=== PATIENT | male | born 1980 | race Caucasian/White ===

== ENCOUNTER 2025-02-10 05:17 | Emergency (ER) | payer BC, OTHER ==
[~2025-02-10] VITALS: Ht 185.4 cm; Wt 165.9 kg
[2025-02-10] MEDS: KETOROLAC TROMETH 60MG/2ML VIAL IM ONE (06:21)
[2025-02-10 06:22] VITALS: BP 140/85; PULSE 63; RESP 18; TEMP 98.1; O2SAT 94
--- NOTE | 2025-02-10 06:27 | DVH ---
EXAM: XR Left Foot Complete, 3 or More Views CLINICAL INDICATION: LEFT FOOT PAIN TECHNIQUE: Frontal, lateral and oblique views of the left foot. COMPARISON: None FINDINGS: BONES/JOINTS: See below. SOFT TISSUES: Soft tissue swelling without acute fracture. No radiopaque foreign body. OTHER FINDINGS: . IMPRESSION: 1. Soft tissue swelling without acute fracture. 2. If symptoms persist, further evaluation with CT is recommended.
--- NOTE | 2025-02-10 07:48 | ED.PDOC ---
Musculoskeletal HPI Comments 44 year male presents for atraumatic non radiating pain to the left foot located to the dorsal lateral aspect of the foot predominantly the base of the 5th metatarsal. The pain is rated moderate in his aggravated with prolonged standing and alleviated at rest. Able to get temporary relief with [id number] Tylenol and Motrin. Denies previous injuries to the affected extremity. Denies any swelling, warmth, erythema. Denies fevers chills nausea vomiting diarrhea Chief Complaint: Lower Extremity Time Seen by MD: 06:34 Reviewed Notes: Nurses Notes, Medications, Allergies Allergies: Coded Allergies: NO KNOWN ALLERGIES (Unverified , 02/10/25) Information Source: Patient Mode of Arrival: Ambulatory Past Medical History PAST MEDICAL HISTORY: Denies Surgical History: Denies all surgeries Family History Family History: Reviewed,noncontributory to illness Social History Smoker: Non-Smoker Alcohol: Denies ETOH Use Drugs: Denies Drug Use All Other Systems: Reviewed and Negative (per hpi) Physical Exam General Appearance: No Apparent Distress, Normal HEENT: Normal ENT Inspection, Pharynx Normal, TMs Normal Neck: Full Range of Motion, Non-Tender, Normal, Normal Inspection Respiratory: Chest Non-Tender, Lungs Clear, No Accessory Muscle Use, No Respiratory Distress, Normal Breath Sounds Cardiovascular: No Edema, No JVD, No Murmur, No Gallop, Normal Peripheral Pulses, Regular Rate/Rhythm Breast Exam: Deferred Gastrointestinal: No Organomegaly, Non Tender, No Pulsatile Mass, Normal Bowel Sounds, Soft Genitalia: Deferred Pelvic: Deferred Rectal: Deferred Extremities: No calf tenderness, Normal capillary refill, Normal inspection, Normal range of motion, Non-tender, No pedal edema Musculoskeletal : Apperance: Normal Neurologic: Alert, [place] II-XII nml as Tested, No Motor Deficits, Normal Affect, Normal Mood, No Sensory Deficits Cerebellar Function: Normal Reflexes: Normal Skin: Dry, Normal Color, Warm Lymphatic: No Adenopathy Was a procedure done? Was a procedure done?: No Images 1 - Localized tenderness to palpation. No other gross abnormality. Dorsalis pedal pulses 2+. No pain with plantar flexion, dorsiflexion. Inversion eversion intact Differential Diagnosis EXT Differential Diagnosis: Sprain X-Ray, Labs, Meds, VS Vital Signs Date Time Temp Pulse Resp B/P (MAP) Pulse Ox O2 Delivery O2 Flow Rate FiO2 02/10/25 06:22 63 18 94 Room Air* 0 21 02/10/25 06:22 98.1 63 18 140/85 (103) 94 98.1 02/10/25 05:25 98.1 63 18 140/85 (103) 94 98.1 Current Medications Medications (Trade) Dose Ordered Sig/Vivi Route Start Time Stop Time Status Last Admin Ketorolac Tromethamine (Toradol Injection) 30 mg ONCE ONCE IM 02/10/25 06:00 02/10/25 06:01 DC 02/10/25 06:21 PATIENT: RUBI ADAMCCT: [id number]: [id number] : 1980 LOC: ER ROOM / BED: / AGE / SEX: 44 / M ADM STATUS: REG ER SERVICE 4 ORDERING PHYSICIAN: SAÚL GONZÁLES MD PROCEDURE(s): LFOOT - L FOOT 3 VIEW XRAY REASON: LEFT FOOT PAIN ORDER NUMBER(s): [id number], ACCESSION NUMBER(s): [id number] EXAM: XR Left Foot Complete, 3 or More Views CLINICAL INDICATION: LEFT FOOT PAIN TECHNIQUE: Frontal, lateral and oblique views of the left foot. COMPARISON: None FINDINGS: BONES/JOINTS: See below. SOFT TISSUES: Soft tissue swelling without acute fracture. No radiopaque foreign body. OTHER FINDINGS: . IMPRESSION: 1. Soft tissue swelling without acute fracture. 2. If symptoms persist, further evaluation with CT is recommended. ATED BY: SUHAS HERRERA MD DICTATED DATE/TIME: 02/10/25624 SIGNED BY: SUHAS HERRERA MD SIGNED DATE/TIME: 02/10/25624 CC: X-Ray, Labs, Meds, VS Comment History and examination consistent of muscular injury vs tendinitis. X-rays ordered, read by radiologist and reviewed by me Patient was given Toradol x1 with no adverse reactions. Declined crutches Take IBU 600 w/ food as needed for pain Recommended heat therapy Reviewed RICE management Avoid heavy lifting or strenuous activity Recommended range of motion exercises and limit heavy activity for 1 week If no improvement advised patient to return to the emergency department for follow-up. On reevaluation, patient had symptomatic improvement. Patient is stable for discharge at this time. External notes reviewed. Test results and diagnostic imaging interpreted. All diagnostic findings, discharge care, education and instructions provided Follow-up with PCP in 2 to 3 days Patient verbalized understanding and agreed to treatment plan Vital signs stable, afebrile, no acute distress noted Patient ambulatory with strong steady gait Advised to return precautions for any new or worsening symptoms, return to ER immediately for re-evaluation Patient is aware that the purpose of this visit was for an acute medical emergency requiring emergent stabilization. Chronic conditions, including malignancies have not been ruled out. Patient is instructed to follow up with PCP as directed and discharge instructions for continued care and workup. If unable to arrange follow-up, patient is to return to the emergency department for reassessment. Patient (parent or legal guardian if applicable) was given verbal and written discharge instructions and acknowledges understanding. Time of 1ST Reevaluation: 07:46 Reevaluation 1ST: Improved Patient Education/Counseling: Diagnosis, Treatment Family Education/Counseling: Diagnosis, Treatment Departure 1 Departure Time of Disposition: 07:47 Impression: Primary Impression: Left foot pain Disposition: 01 HOME / SELF CARE / HOMELESS Condition: Stable Discharged With: Self Critical Care Note Critical Care Time?: No Stability Stability form required: No Heart Score Heart Score: Heart Score Response (Comments) Value History N/A 0 EKG N/A 0 Age N/A 0 Risk Factors N/A 0 Troponin N/A 0 Total 0 RODOLFO YE NP Feb 10, 2025 07:48
== END 2025-02-10 07:49 | disposition home or self-care (01) ==
LOC: ER 05:17 → EEVIPCON 05:17 → ER 07:49
DX: M79.672 Pain in left foot (principal)
CPT/HCPCS: 73630; 96372; 99283; J1885

== ENCOUNTER 2025-10-08 08:51 | Emergency (ER) | payer BC, OTHER ==
[~2025-10-08] VITALS: Ht 185.4 cm; Wt 170.8 kg
[~2025-10-08 08:51] MED LIST: LISI10TA34 PO
[2025-10-08 09:20] VITALS: BP 144/83; TEMP 98.3
--- NOTE | 2025-10-08 09:41 | ED.PDOC ---
History of Present Illness(SKN HPI Comments A 45 YEAR OLD MALE PRESENTS TO THE ED WITH COMPLAINT OF REDNESS AND BILATERAL LOWER LEGS. PATIENT STATES HE HAS A HISTORY OF CELLULITIS OF HIS BILATERAL LOWER LEG AND HAS BEEN EXPERIENCING REDNESS, MILD SWELLING, AND A BURNING PAIN TO HIS BILATERAL LOWER LEGS FOR THE PAST 1 WEEK. PATIENT NOTES THIS HAS BEEN A RECURRENT PROBLEM FOR THE PAST 3 YEARS. PATIENT DENIES FEVER, CHILLS, SHORTNESS OF BREATH, CHEST PAIN, ABDOMINAL PAIN, NAUSEA, VOMITING, HEADACHE, OR OTHER COMPLAINTS. NO OTHER SYMPTOMS OR MODIFYING FACTORS AT THIS TIME. PATIENT IS ALERT, ORIENTED X 4, AND HAS STEADY GAIT. Chief Complaint: Lower Extremity Time Seen by MD: 08:56 History of Present Illness: Nurses Notes, Medications, Allergies Allergies: Coded Allergies: NO KNOWN ALLERGIES (Unverified , 02/10/25) Home Meds Active Scripts Tramadol HCl (Tramadol HCl) 50 Mg Tab, 50 MG PO TID, #20 TAB Prov:LOUIS COTO 10/08/25 Cephalexin Monohydrate (Cephalexin) 500 Mg Cap, 2 CAP PO BID, #40 CAP Prov:LOUIS COTO 10/08/25 Levofloxacin Hemihydrate (LEVOFLOXACIN) 750 Mg Tab, 1 TAB PO DAILY, #10 TAB Prov:LOUIS COTO 10/08/25 Lisinopril (Lisinopril) 10 Mg Tab, 10 MG PO DAILY for 90 Days, #90 TAB 1 Refill Prov:DOROTHYLYLE 07/31/25 Information Source: Patient Mode of Arrival: Ambulatory Severity: Moderate Timing: Days Duration: Since onset, Days Prehospital treatment: None Location: Leg Mechanism: Spontaneous Onset Occurence: Indoors Object: None Condition of Object: None Retained Foreign Body: No Wound Type: None Immunization Status of Animal: NA Tetanus: Unknown History of: None Associated Signs and Symptoms: Redness, Swelling, Pain Past Medical History Past Medical History (Other): CELLULITIS OF BILATERAL LOWER LEGS Surgical History: Denies all surgeries Family History Family History: Reviewed,noncontributory to illness Social History Smoker: Non-Smoker Alcohol: Denies ETOH Use Drugs: Denies Drug Use Lives In: Home Constitutional: denies: chills, diaphoresis, fatigue, fever, malaise, sweats, weakness, others EENTM: denies: blurred vision, double vision, ear bleeding, ear discharge, ear drainage, ear pain, ear ringing, eye pain, eye redness, hearing loss, mouth pain, mouth swelling, nasal discharge, nose bleeding, nose congestion, nose pain, photophobia, tearing, throat pain, throat swelling, voice changes, others Respiratory: denies: cough, hemoptysis, orthopnea, SOB at rest, shortness of breath, SOB with excertion, stridor, wheezing, others Cardiovascular: denies: chest pain, dizzy spells, diaphoresis, Dyspnea on exertion, edema, irregular heart beat, left arm pain, lightheadedness, palpitations, PND, syncope, others Gastrointestinal: denies: abdomen distended, abdominal pain, blood streaked bowels, constipated, diarrhea, dysphagia, difficulty swallowing, hematemesis, melena, nausea, poor appetite, poor fluid intake, rectal bleeding, rectal pain, vomiting, others Genitourinary: denies: burning, dysuria, flank pain, frequency, hematuria, incontinence, penile discharge, penile sore, pain, testicle pain, testicle swelling, urgency, others Neurological: denies: dizziness, fainting, headache, left sided numbness, left sided weakness, numbness, paresthesia, pre-existing deficit, right sided numbness, right sided weakness, seizure, speech problems, tingling, tremors, weakness, others Musculoskeletal: denies: back pain, gout, joint pain, joint swelling, muscle pain, muscle stiffness, neck pain, others Integumetry: reports: others (REDNESS AND SWELLING OF BILATERAL LOWER LEGS); denies: bruises, change in color, change in hair/nails, dryness, laceration, lesions, lumps, rash, wounds Allergic/Immunocompromised: denies: Difficulty Healing, Frequent Infections, Hives, Itching, others Hematologic/Lymphatic: denies: anemia, blood clots, easy bleeding, easy bruising, swollen glands, others Endocrine: denies: excessive hunger, excessive sweating, excessive thirst, excessive urination, flushing, intolerance to cold, intolerance to heat, unexplained weight gain, unexplained weight loss, others Psychiatric: denies: anxiety, bipolar disorder, depression, hopeless, panic disorder, schizophrenia, sleepless, suicidal, others All Other Systems: Reviewed and Negative Physical Exam General Appearance: No Apparent Distress, Obese HEENT: Normal ENT Inspection, PERRL/EOMI, Pharynx Normal, TMs Normal Neck: Full Range of Motion, Non-Tender, Normal, Normal Inspection Respiratory: Chest Non-Tender, Lungs Clear, No Accessory Muscle Use, No Respiratory Distress, Normal Breath Sounds Cardiovascular: No Edema, No JVD, No Murmur, No Gallop, Normal Peripheral Pulses, Regular Rate/Rhythm Breast Exam: Deferred Gastrointestinal: No Organomegaly, Non Tender, No Pulsatile Mass, Normal Bowel Sounds, Soft Genitalia: Deferred Pelvic: Deferred Rectal: Deferred Extremities: No calf tenderness, Normal capillary refill, Normal range of motion, No pedal edema, Tender (AND MILD REDNESS ON BILATERAL LOWER LEG, NO DVT SIGNS, NO OPEN WOUND AND DRAINAGE, EARLY STAGE OF CELLULITIS. ) Musculoskeletal : Apperance: Normal Neurologic: Alert, signwriter II-XII nml as Tested, No Motor Deficits, Normal Affect, Normal Mood, No Sensory Deficits Cerebellar Function: Normal Reflexes: Normal Skin: Dry, Normal Color, Warm, Other (LOCALIZED ERYTHEMA AND TENDERNESS ON BILA TERAL ANTERIOR LOWER LEG, NO OPEN WOUND AND DRAINAGE, EARLY STAGE OF CELLULITIS. ) Peripheral Pulses: 2+ carotid (R), 2+ carotid (L) Lymphatic: No Adenopathy Was a procedure done? Was a procedure done?: No Differential Diagnosis (INTG) Differential Diagnosis: N/A Differential Diagnosis: Atopic dermatitis, Cellulitis, Contact Dermatitis, Erysipelas Differential Diagnosis: N/A Abscess: N/A Differential Diagnosis: N/A X-Ray, Labs, Meds, VS Vital Signs Date Time Temp Pulse Resp B/P (MAP) Pulse Ox O2 Delivery O2 Flow Rate FiO2 10/08/25 09:53 85 20 98 Room Air* 0 21 10/08/25 09:21 69 18 96 Room Air 10/08/25 09:20 98.3 69 18 144/83 (103) 96 98.3 10/08/25 08:52 98.3 69 18 144/83 96 98.3 Lab Test 10/08/25 09:39 Range/Units White Blood Count 8.4 4.4-10.8 10^3/uL Red Blood Count 5.74 4.5-5.90 10^6/uL Hemoglobin 16.2 13.5-17.5 g/dL Hematocrit 48.7 41.0-53.0 % Mean Corpuscular Volume 84.8 80.0-100.0 fL Mean Corpuscular Hemoglobin 28.2 28.0-32.0 pg Mean Corpuscular Hemoglobin Concent 33.2 32.0-36.0 g/dL Red Cell Distribution Width 13.4 11.8-14.3 % Platelet Count 206 140-450 10^3/uL Mean Platelet Volume 9.9 6.9-10.8 fL Neutrophils (%) (Auto) 56.2 37.0-80.0 % Lymphocytes (%) (Auto) 32.9 10.0-50.0 % Monocytes (%) (Auto) 8.7 0.0-12.0 % Eosinophils (%) (Auto) 1.0 0.0-7.0 % Basophils (%) (Auto) 1.2 0.0-2.0 % Neutrophils # (Auto) 4.7 1.6-8.6 10 ^3/uL Lymphocytes # (Auto) 2.8 0.4-5.4 10 ^3/uL Monocytes # (Auto) 0.7 0-1.3 10 ^3/uL Eosinophils # (Auto) 0.1 0-0.8 10 ^3/uL Basophils # (Auto) 0.1 0-0.2 10 ^3/uL Nucleated Red Blood Cells 0.3 % Sodium Level 140 136-145 mmol/L Potassium Level 4.1 3.5-5.1 mmol/L Chloride Level 104 98-107 mmol/L Carbon Dioxide Level 28 20-31 mmol/L Anion Gap 8 5-15 Blood Urea Nitrogen 14 9-23 mg/dL Creatinine 1.07 0.700-1.30 mg/dL Glomerular Filtration Rate Calc 87 >90 mL/min BUN/Creatinine Ratio 13.1 10.0-20.0 Serum Glucose 102 74-106 mg/dL Calcium Level 9.3 8.7-10.4 mg/dL Current Medications Medications (Trade) Dose Ordered Sig/Vivi Route Start Time Stop Time Status Last Admin Ceftriaxone Sodium 50 ml @ 100 mls/hr ONCE ONCE IV 10/08/25 09:30 10/08/25 09:59 DC 10/08/25 09:49 Clindamycin Phosphate 50 ml @ 50 mls/hr ONCE ONCE IV 10/08/25 09:30 10/08/25 10:29 DC 10/08/25 09:48 Ketorolac Tromethamine (Toradol Injection) 30 mg ONCE ONCE IV 10/08/25 09:30 10/08/25 09:31 DC 10/08/25 09:48 Acetaminophen/ Hydrocodone Bitart ([place] 10/325MG Tab) 1 tab ONCE ONCE PO 10/08/25 11:00 10/08/25 11:01 DC 10/08/25 11:06 X-Ray, Labs, Meds, VS Comment EXTERNAL MEDICAL RECORDS REVIEWED: [NONE] INDEPENDENT HISTORIANS: [NONE] SOCIAL DETERMINANTS OF HEALTH: [NONE] LABS ORDERED: NONE REVIEWED AND INTERPRETED RESULTS: NONE IMAGING ORDERED: NONE TREATMENTS ORDERED: ROCEPHIN 1G IV, CLINDAMYCIN 900 MG IV, TORADOL 30 MG IV, NORCO 10/325 MG P.O. PROCEDURES PERFORMED: NONE CRITICAL CARE TIME: NONE I HAVE DISCUSSED THE PATIENT WITH THE ATTENDING PHYSICIAN DR. MIRZA AND HE AGREES WITH THE PATIENT'S PLAN OF CARE AND DISPOSITION. THE PATIENT WAS OFFERED ADMISSION DUE TO HIS HISTORY OF FREQUENT CELLULITIS INFECTION, BUT THE PATIENT DECLINED AT THIS TIME AND WOULD PREFER IV ANTIBIOTIC TREATMENT AND OUTPATIENT ANTIBIOTIC TREATMENT. BASED ON HISTORY OF PRESENT ILLNESS, AND PHYSICAL EXAM, PATIENT WILL BE DISCHARGED HOME. DISCUSSED PLAN FOR DISCHARGE HOME WITH RX [LEVAQUIN 500 MG, KEFLEX, AND TRAMADOL]. MEDICATION WARNINGS GIVEN. SHARED DECISION MAKING: DISCUSSED WITH PATIENT THAT THEIR WORKUP WAS NORMAL. PATIENT INSTRUCTED TO FOLLOW UP WITH PRIMARY CARE PROVIDER IN 1-2 DAYS FOR RE-EVALUATION OF SYMPTOMS. PATIENT VERBALIZES UNDERSTANDING TO RETURN TO ED FOR NEW OR WORSENING SYMPTOMS OR IF FOLLOW UP WITH PCP CANNOT BE OBTAINED. PATIENT FEELS COMFORTABLE GOING HOME AT THIS TIME. ALL QUESTIONS ADDRESSED AT TIME OF DISCHARGE. Time of 1ST Reevaluation: 11:38 Reevaluation 1ST: Improved Patient Education/Counseling: Diagnosis, Treatment, Need For Follow Up Family Education/Counseling: Diagnosis, Treatment, Need For Follow Up Medical Screening: No EMC Exist At This Time SEPSIS Sepsis Screen Date sepsis recognized/suspect: Oct 08, 2025 Time Sepsis recognized/suspect: 0854 Recent Procedure: No On Antibiotic Therapy: No Respiratory Rate >20: No Heart Rate >90: No Temp<36 C (96.8 F) or >38.3 C: No SBP <90 or MAP <65 mmHG: No New Acute Mental Status Change: No Is the patient on CPAP, BIPAP,: No Vital Signs Date Time Temp Pulse Resp B/P (MAP) Pulse Ox O2 Delivery O2 Flow Rate FiO2 10/08/25 09:53 85 20 98 Room Air* 0 21 10/08/25 09:21 69 18 96 Room Air 10/08/25 09:20 98.3 69 18 144/83 (103) 96 98.3 10/08/25 08:52 98.3 69 18 144/83 96 98.3 Laboratory Tests Test 10/08/25 09:39 White Blood Count 8.4 10^3/uL (4.4-10.8) Medications Medications Dose Ordered Sig/Vivi Route Start Time Stop Time Status Last Admin Dose Admin Acetaminophen/ Hydrocodone Bitart 1 tab ONCE ONCE PO 10/08/25 11:00 10/08/25 11:01 DC 10/08/25 11:06 Ceftriaxone Sodium 50 ml @ 100 mls/hr ONCE ONCE IV 10/08/25 09:30 10/08/25 09:59 DC 10/08/25 09:49 Clindamycin Phosphate 50 ml @ 50 mls/hr ONCE ONCE IV 10/08/25 09:30 10/08/25 10:29 DC 10/08/25 09:48 Ketorolac Tromethamine 30 mg ONCE ONCE IV 10/08/25 09:30 10/08/25 09:31 DC 10/08/25 09:48 Departure 1 Departure Time of Disposition: 11:38 Impression: Primary Impression: Cellulitis of both lower extremities Disposition: HOME / SELF CARE / HOMELESS Condition: Stable Additional Instructions: FOLLOW-UP WITH PCP IN 1 TO 2 DAYS. TAKE MEDICATIONS PRESCRIBED. RETURN TO ED FOR ANY NEW OR WORSENING SYMPTOMS. e-Prescriptions Tramadol HCl (Tramadol HCl) 50 Mg Tab 50 MG PO TID, #20 TAB Prov: LOUIS COTO 10/08/25 Cephalexin Monohydrate (Cephalexin) 500 Mg Cap 2 CAP PO BID, #40 CAP Prov: LOUIS COTO 10/08/25 Levofloxacin Hemihydrate (LEVOFLOXACIN) 750 Mg Tab 1 TAB PO DAILY, #10 TAB Prov: LOUIS COTO 10/08/25 Discharged With: Self Critical Care Note Critical Care Time?: No Stability Stability form required: No I personally scribed for LOUIS COTO ([email or web address]) on 10/08/25 at 09:41. Electronically submitted by Andriy Desouza ([email or web address]). I personally scribed for LOUIS COTO ([email or web address]) on 10/08/25 at 11:00. Electronically submitted by Andriy Desouza ([email or web address]). LOUIS COTO Oct 08, 2025 09:41
[2025-10-08] MEDS: KETOROLAC TROMETH 30 MG/ML 1ML VIAL IV ONE (09:48)
[2025-10-08] MEDS: CLINDAMYCIN 900MG IV 50 ML IV ONE (09:48)
[2025-10-08 09:53] VITALS: PULSE 85; RESP 20; O2SAT 98
[2025-10-08 10:01] LABS: Hematocrit 48.7 % (41.0-53.0); Hemoglobin 16.2 g/dL (13.5-17.5); Mean Corpuscular Hemoglobin 28.2 pg (28.0-32.0); Mean Corpuscular Volume 84.8 fL (80.0-100.0); Nucleated Red Blood Cells % 0.3 %
[2025-10-08 10:06] LABS: Chloride 104 mmol/L (98-107); Potassium 4.1 mmol/L (3.5-5.1); Sodium 140 mmol/L (136-145)
[2025-10-08 10:07] LABS: Anion Gap 8 (5-15); Calcium 9.3 mg/dL (8.7-10.4); Carbon Dioxide 28 mmol/L (20-31)
[2025-10-08 10:12] LABS: BUN/Creatinine Ratio 13.1 (10.0-20.0); Blood Urea Nitrogen 14 mg/dL (9-23); Glucose 102 mg/dL (74-106)
[2025-10-08] MEDS: HYDROcodone-ACET 10/325MG TAB PO ONE ×2 (11:06→11:15)
[2025-10-08] MEDS ORDERED: CEPH500C PO (11:16)
[2025-10-08] MEDS ORDERED: TRAM-626 PO (11:16)
[2025-10-08] MEDS ORDERED: LEVO750T40 PO (11:16)
== END 2025-10-08 11:31 | disposition home or self-care (01) ==
LOC: ER 08:51
DX: L03.115 Cellulitis of right lower limb (principal); L03.116 Cellulitis of left lower limb
CPT/HCPCS: 36415; 80048; 85025; 96365; 96368; 96375; 99284; J0696; J1885; J3490